=== PATIENT | male | born 1955 | race Caucasian/White ===

== ENCOUNTER 2024-09-09 14:56 | Emergency (ER) | payer MEDICARE, OTHER ==
[~2024-09-09] VITALS: Ht 170.2 cm; Wt 97.5 kg
[2024-09-09] VITALS (7 sets, daily range): BP systolic 130–145; BP diastolic 91–105
[2024-09-09] MEDS ORDERED: LIDOCAINE 2% (20 MG/ML) MDV NB ONE (15:35)
[2024-09-09] MEDS ORDERED: KETOROLAC TROMETHAMINE 30 MG/ML SDV IM ONE (18:15)
[2024-09-09] MEDS ORDERED: DICLOFENAC SODIUM 75 MG/TAB PO ONE (19:55)
[2024-09-09] MEDS ORDERED: HYDROcodone 5 MG/Acetaminophen 325 MG/COMBO PO ONE (19:55)
[2024-09-09] MEDS ORDERED: VOLTAREN - GENE75 MG PO (20:05)
[2024-09-09] MEDS ORDERED: LORTAB 5/3255 MG PO (20:05)
[2024-09-09] MEDS ORDERED: Diph, Acellular Pertussis, Tet 0.5 ML/VIAL (Tdap) SDV IM ONE (20:15)
== END 2024-09-09 20:20 | disposition home or self-care (01) ==
LOC: ED 14:56
PROC: 0HQGXZZ Repair Left Hand Skin, External Approach (ICD-10-PCS; principal; 2024-09-09)
DX: S62.001A Unspecified fracture of navicular [scaphoid] bone of right wrist, initial encounter for closed fracture (principal); S62.612A Displaced fracture of proximal phalanx of right middle finger, initial encounter for closed fracture; S00.31XA Abrasion of nose, initial encounter; S00.81XA Abrasion of other part of head, initial encounter; S50.311A Abrasion of right elbow, initial encounter; S80.211A Abrasion, right knee, initial encounter; V28.49XA Other motorcycle driver injured in noncollision transport accident in traffic accident, initial encounter; S61.211A Laceration without foreign body of left index finger without damage to nail, initial encounter; S61.213A Laceration without foreign body of left middle finger without damage to nail, initial encounter
CPT/HCPCS: 90715